=== PATIENT | female | born 1995 | race Caucasian/White ===

== ENCOUNTER 2021-09-02 19:48 | Observation (INO) | payer OTHER, MEDICAID ==
[~2021-09-02] VITALS: Ht 162.6 cm; Wt 135.2 kg
[2021-09-02] MEDS ORDERED: LACTATED RINGERS 1,000 ML IV SCH (20:45)
[2021-09-02] MEDS ORDERED: PREN1TAB78 PO (21:13)
[2021-09-02] MEDS ORDERED: VITAMIN D (21:13)
[2021-09-02] MEDS ORDERED: LEVOTHYROXIN (21:13)
[2021-09-02] MEDS ORDERED: FOLIC ACID (21:13)
[2021-09-02 21:53] LABS: CLARITY URINE CLEAR (CLEAR); COLOR URINE YELLOW (YELLOW); KETONES URINE NEGATIVE (NEGATIVE); LEUKOCYTE ESTERASE URINE NEGATIVE (NEGATIVE); NITRITE URINE NEGATIVE (NEGATIVE); OCCULT BLOOD URINE NEGATIVE (NEGATIVE); PH URINE 6.5 (4.5-8.0); PROTEIN URINE 1+ (NEGATIVE); SPECIFIC GRAVITY URINE 1.018 (1.005-1.030)
[2021-09-02 22:01] LABS: CHLORIDE 108 mEq/L (98-107)
[2021-09-02 22:03] LABS: BASOPHILS % 0.5 % (0.0-2.0); EOSINOPHILS % 0.4 % (0.0-5.0); HEMATOCRIT. 30.6 % (36.0-48.0); HEMOGLOBIN. 10.4 g/dL (12.0-16.0); LYMPHOCYTES % 12.1 % (20.0-50.0); MEAN CORPUSCULAR HEMOGLOBIN 28.4 pg (28.0-32.0); MEAN CORPUSCULAR VOLUME 83.3 fL (81.0-99.0); MEAN PLATELET VOLUME 10.6 fl (7.4-10.4); MONOCYTES % 5.8 % (2.0-8.0); NEUTROPHILS % 81.2 % (40.0-76.0); PLATELET 239 x1000/uL (130-400); RED BLOOD CELL COUNT 3.67 mill/uL (4.2-5.4); RED CELL DISTRIBUTION WIDTH 13.3 % (11.6-14.6)
== END 2021-09-02 22:45 | disposition home or self-care (01) ==
LOC: 8 EST LDRP 19:48 → 8 EST A/PP 21:15 → OB TRIAGE 21:19 → 8 EST LDRP 21:22
PROVIDERS: ADMIT Obstetrics & Gynecology; ATTEND Obstetrics & Gynecology
DX: O30.003 Twin pregnancy, unspecified number of placenta and unspecified number of amniotic sacs, third trimester (principal); O26.893 Other specified pregnancy related conditions, third trimester; R03.0 Elevated blood-pressure reading, without diagnosis of hypertension; R51.9 Headache, unspecified; Z3A.35 35 weeks gestation of pregnancy
CPT/HCPCS: 36415; 59025; 80053; 81003; 84550; 85025; 96360; 99281; G0378; A4315

== ENCOUNTER 2021-09-09 11:42 | Observation (INO) | payer OTHER, MEDICAID ==
[~2021-09-09] VITALS: Ht 162.6 cm; Wt 135.2 kg
[~2021-09-09 11:42] MED LIST: FOLIC ACID; LEVOTHYROXIN; PREN1TAB78 PO; VITAMIN D
[2021-09-09 14:00] LABS: BASOPHILS % 0.1 % (0.0-2.0); EOSINOPHILS % 0.1 % (0.0-5.0); HEMOGLOBIN. 10.6 g/dL (12.0-16.0); LYMPHOCYTES % 11.3 % (20.0-50.0); MEAN CORPUSCULAR HEMOGLOBIN 28.3 pg (28.0-32.0); MEAN CORPUSCULAR VOLUME 85.2 fL (81.0-99.0); MEAN PLATELET VOLUME 9.2 fl (7.4-10.4); MONOCYTES % 4.4 % (2.0-8.0); NEUTROPHILS % 84.1 % (40.0-76.0); PLATELET 266 x1000/uL (130-400); RED BLOOD CELL COUNT 3.75 mill/uL (4.2-5.4); RED CELL DISTRIBUTION WIDTH 13.7 % (11.6-14.6)
[2021-09-09 14:06] LABS: CHLORIDE 110 mEq/L (98-107)
[2021-09-09 14:08] LABS: CLARITY URINE CLOUDY (CLEAR); COLOR URINE YELLOW (YELLOW); KETONES URINE NEGATIVE (NEGATIVE); LEUKOCYTE ESTERASE URINE 2+ (NEGATIVE); NITRITE URINE NEGATIVE (NEGATIVE); OCCULT BLOOD URINE NEGATIVE (NEGATIVE); PH URINE 6.5 (4.5-8.0); PROTEIN URINE 1+ (NEGATIVE); SPECIFIC GRAVITY URINE 1.016 (1.005-1.030)
[2021-09-09 14:14] LABS: D-DIMER 2.03 mg/L FEU (<0.50); PARTIAL THROMBOPLASTIN TIME 31.9 sec (23.4-31.0); PROTHROMBIN TIME 10.3 sec (9.6-11.0)
== END 2021-09-09 16:10 | disposition home or self-care (01) ==
LOC: 8 EST LDRP 11:42
PROVIDERS: ADMIT Obstetrics & Gynecology; ATTEND Obstetrics & Gynecology
DX: O30.003 Twin pregnancy, unspecified number of placenta and unspecified number of amniotic sacs, third trimester (principal); Z79.899 Other long term (current) drug therapy; Z79.01 Long term (current) use of anticoagulants; Z3A.36 36 weeks gestation of pregnancy
CPT/HCPCS: 36415; 59025; 76815; 76818; 80053; 81003; 84550; 85025; 85379; 85384; 85610; 85730; 87086; G0378; 99281

== ENCOUNTER 2021-09-26 07:54 | Inpatient (IN) | payer MEDICAID, OTHER ==
[~2021-09-26] VITALS: Ht 162.6 cm; Wt 136.1 kg
[2021-09-26] MEDS ORDERED: DEXT 5%/LR + PITOCIN 20UNITS/L 1,000 ML IV SCH (09:00)
[2021-09-26] MEDS ORDERED: RHO(D) IMMUNE GLOBULIN 300 MCG/SYR IM ONE (09:00)
[2021-09-26] MEDS ORDERED: NALOXONE HCL 0.4 MG/ML 1ML VIAL IM PRN (09:00)
[2021-09-26] MEDS: LACTATED RINGERS 1,000 ML IV SCH ×2 (09:28→10:07)
[2021-09-26 09:32] LABS: BASOPHILS % 0.3 % (0.0-2.0); EOSINOPHILS % 0.3 % (0.0-5.0); HEMATOCRIT. 33.3 % (36.0-48.0); HEMOGLOBIN. 11.2 g/dL (12.0-16.0); LYMPHOCYTES % 14.9 % (20.0-50.0); MEAN CORPUSCULAR HEMOGLOBIN 28.3 pg (28.0-32.0); MEAN PLATELET VOLUME 9.8 fl (7.4-10.4); MONOCYTES % 4.8 % (2.0-8.0); NEUTROPHILS % 79.7 % (40.0-76.0); PLATELET 261 x1000/uL (130-400); RED BLOOD CELL COUNT 3.96 mill/uL (4.2-5.4); RED CELL DISTRIBUTION WIDTH 14.1 % (11.6-14.6)
[2021-09-26 09:41] LABS: CLARITY URINE CLEAR (CLEAR); COLOR URINE DARK YELLOW (YELLOW); KETONES URINE NEGATIVE (NEGATIVE); LEUKOCYTE ESTERASE URINE TRACE (NEGATIVE); NITRITE URINE NEGATIVE (NEGATIVE); OCCULT BLOOD URINE NEGATIVE (NEGATIVE); PROTEIN URINE 3+ (NEGATIVE); SPECIFIC GRAVITY URINE 1.019 (1.005-1.030)
[2021-09-26 09:46] LABS: *AMPHETAMINES SCREEN URINE NEGATIVE (NEGATIVE); *BARBITURATES SCREEN URINE NEGATIVE (NEGATIVE); *BENZODIAZEPINES SCREEN URINE NEGATIVE (NEGATIVE); *COCAINE SCREEN URINE NEGATIVE (NEGATIVE)
[2021-09-26 09:47] LABS: CANNABINOID URINE SCREEN NEGATIVE (NEGATIVE); METHADONE URINE SCREEN NEGATIVE (NEGATIVE); OPIATES URINE SCREEN NEGATIVE (NEGATIVE); PHENCYCLIDINE URINE SCREEN NEGATIVE (NEGATIVE)
[2021-09-26 09:48] LABS: INR 0.9; PARTIAL THROMBOPLASTIN TIME 32.8 sec (23.4-31.0)
[2021-09-26] MEDS ORDERED: PHENYLEPHRINE HCL 10 MG/ML 1ML (IV VIAL) IV ONE (14:09)
[2021-09-26] MEDS ORDERED: MORPHINE SULFATE/PF 1MG/ML 10ML AMP ONE (14:10)
[2021-09-26] MEDS ORDERED: OXYTOCIN 10 UNITS/ML 1ML ONE (15:36)
[2021-09-26] MEDS ORDERED: KETOROLAC 60MG/2ML VIAL IM ONE ×2 (15:49→15:58)
[2021-09-26] MEDS ORDERED: EPHEDRINE SULFATE 50MG/ML VIAL ONE (15:49)
[2021-09-26] MEDS ORDERED: DEXAMETHASONE 4MG/ML 1ML VIAL ONE (15:58)
[2021-09-26] MEDS ORDERED: ONDANSETRON HCL 4MG/2ML INJ ONE (15:58)
[2021-09-26] MEDS ORDERED: NALOXONE HCL 0.4 MG/ML 1ML VIAL IV PRN (16:00)
[2021-09-26] MEDS ORDERED: KETOROLAC 30MG/ML VIAL IV PRN (16:00)
[2021-09-26] MEDS ORDERED: BUTORPHANOL TARTRATE 2 MG/ML VIAL IV PRN (16:30)
[2021-09-26] MEDS ORDERED: DIPHENHYDRAMINE 50MG/ML VIAL ONE (16:33)
[2021-09-26] MEDS ORDERED: BISACODYL 10MG SUPP PR PRN (17:00)
[2021-09-26] MEDS ORDERED: HYDROCODONE/ACETAMINOPHEN 5/325MG TABLET PO PRN (17:00)
[2021-09-26] MEDS ORDERED: LANOLIN OINT 7GM TUBE TOP PRN (17:00)
[2021-09-26] MEDS ORDERED: ONDANSETRON HCL 4MG/2ML INJ IV PRN (17:00)
[2021-09-26] MEDS ORDERED: DIPHENHYDRAMINE 25MG CAPSULE PO PRN (17:00)
[2021-09-26] MEDS ORDERED: RHO(D) IMMUNE GLOBULIN 300 MCG/SYR IM PRN (17:00)
[2021-09-26 20:00] VITALS: BP 100/46
[2021-09-26] MEDS ORDERED: METHYLERGONOVINE MALEATE 0.2 MG/ML IM NR (20:11)
[2021-09-26 20:30] VITALS: BP 96/51
[2021-09-26] MEDS: DEXT 5%/LR + PITOCIN 20UNITS/L 1,000 ML IV SCH (20:51)
[2021-09-26 21:00] VITALS: BP 119/64
[2021-09-26] MEDS ORDERED: METOCLOPRAMIDE HCL 10MG/2ML VIAL IV PRN (21:30)
[2021-09-26 23:00] LABS: HEPATITIS B SURFACE ANTIGEN NEGATIVE
[2021-09-27 00:10] VITALS: BP 100/62
[2021-09-27 03:00] VITALS: BP 102/55
[2021-09-27] MEDS: DEXT 5%/LR + PITOCIN 20UNITS/L 1,000 ML IV SCH (05:00)
[2021-09-27] MEDS ORDERED: INFLUENZA VACCINE 05/PF 0.5 ML SYRINGE IM ONE (06:00)
[2021-09-27] MEDS ORDERED: TETANUS, DIPHTHERIA, PERTUSSIS VAC/PF 0.5ML (>10YR OLD) IM ONE (06:00)
[2021-09-27 07:40] VITALS: BP 100/57
[2021-09-27 08:47] LABS: BASOPHILS % 0.2 % (0.0-2.0); LYMPHOCYTES % 13.1 % (20.0-50.0); MEAN CORPUSCULAR HEMOGLOBIN 27.9 pg (28.0-32.0); MEAN CORPUSCULAR VOLUME 85.8 fL (81.0-99.0); MEAN PLATELET VOLUME 9.9 fl (7.4-10.4); MONOCYTES % 5.9 % (2.0-8.0); NEUTROPHILS % 80.8 % (40.0-76.0); PLATELET 281 x1000/uL (130-400); RED BLOOD CELL COUNT 2.24 mill/uL (4.2-5.4); RED CELL DISTRIBUTION WIDTH 13.8 % (11.6-14.6)
[2021-09-27] MEDS: PRENATAL VIT/FE FUMARATE/FA TABLET PO SCH (09:11)
[2021-09-27 09:35] LABS: HEMOGLOBIN. 6.2 g/dL (12.0-16.0)
[2021-09-27 09:37] LABS: HEMATOCRIT. 19.2 % (36.0-48.0)
[2021-09-27 09:53] LABS: T4 FREE 0.46 ng/dL (0.76-1.46)
[2021-09-27] MEDS ORDERED: LEVOTHYROXINE SODIUM 150MCG TABLET PO NR (10:30)
[2021-09-27] MEDS ORDERED: DEXT 5%/LR + PITOCIN 20UNITS/L 1,000 ML IV SCH (11:45)
[2021-09-27] MEDS: LEVOTHYROXINE SODIUM 125MCG TABLET PO SCH (14:06)
[2021-09-27 16:00] VITALS: BP 103/46
[2021-09-27 20:00] VITALS: BP 116/60
[2021-09-27] MEDS: DOCUSATE SODIUM 100MG CAPSULE PO SCH (21:34)
[2021-09-28] MEDS: HYDROCODONE/ACETAMINOPHEN 5/325MG TABLET PO PRN ×3 (01:39→17:41)
[2021-09-28 04:20] VITALS: BP 113/63
[2021-09-28] MEDS: LEVOTHYROXINE SODIUM 125MCG TABLET PO SCH (06:35)
[2021-09-28 08:00] VITALS: BP 114/64
[2021-09-28] MEDS: PRENATAL VIT/FE FUMARATE/FA TABLET PO SCH (08:20)
[2021-09-28] MEDS: FERROUS SULFATE 300MG/5ML UDC PO SCH ×3 (08:21→17:41)
[2021-09-28 16:00] VITALS: BP 150/82
[2021-09-28 19:15] VITALS: BP 113/80
[2021-09-28] MEDS: IBUPROFEN 400MG TABLET PO PRN (21:09)
[2021-09-29] VITALS (12 sets, daily range): BP systolic 125–145; BP diastolic 69–83
[2021-09-29] MEDS: LEVOTHYROXINE SODIUM 125MCG TABLET PO SCH (06:57)
[2021-09-29] MEDS: PRENATAL VIT/FE FUMARATE/FA TABLET PO SCH (08:15)
[2021-09-29] MEDS: FERROUS SULFATE 300MG/5ML UDC PO SCH ×3 (08:15→17:19)
[2021-09-29 17:00] LABS: BASOPHILS % 0.1 % (0.0-2.0); EOSINOPHILS % 0.2 % (0.0-5.0); HEMOGLOBIN. 7.7 g/dL (12.0-16.0); LYMPHOCYTES % 15.5 % (20.0-50.0); MEAN CORPUSCULAR HEMOGLOBIN 29.7 pg (28.0-32.0); MEAN CORPUSCULAR VOLUME 84.5 fL (81.0-99.0); MONOCYTES % 5.3 % (2.0-8.0); NEUTROPHILS % 78.9 % (40.0-76.0); PLATELET 297 x1000/uL (130-400); RED CELL DISTRIBUTION WIDTH 14.5 % (11.6-14.6)
[2021-09-29] MEDS: IBUPROFEN 400MG TABLET PO PRN (19:39)
[2021-09-29] MEDS: DOCUSATE SODIUM 100MG CAPSULE PO SCH (21:09)
[2021-09-30 04:00] VITALS: BP 117/74
[2021-09-30] MEDS ORDERED: DOCU-150 PO (05:26)
[2021-09-30] MEDS ORDERED: IBUP-2028 PO (05:26)
[2021-09-30] MEDS ORDERED: FE300LUD PO (05:26)
[2021-09-30] MEDS: LEVOTHYROXINE SODIUM 125MCG TABLET PO SCH (06:55)
[2021-09-30] MEDS: FERROUS SULFATE 300MG/5ML UDC PO SCH (08:00)
[2021-09-30] MEDS: PRENATAL VIT/FE FUMARATE/FA TABLET PO SCH (08:00)
[2021-09-30 08:21] VITALS: BP 131/77
== END 2021-09-30 11:40 | disposition home or self-care (01) | DRG 787 ==
LOC: OBSVTOIN 07:54 → 8 EST LDRP 07:54 → 8EST 19:22
PROVIDERS: ADMIT Obstetrics & Gynecology; ATTEND Obstetrics & Gynecology
PROC: 10D00Z1 Extraction of Products of Conception, Low, Open Approach (ICD-10-PCS; principal; 2021-09-26)
DX: O30.003 Twin pregnancy, unspecified number of placenta and unspecified number of amniotic sacs, third trimester (principal); K80.21 Calculus of gallbladder without cholecystitis with obstruction; O26.62 Liver and biliary tract disorders in childbirth; E03.9 Hypothyroidism, unspecified; O32.2XX2 Maternal care for transverse and oblique lie, fetus 2; O90.81 Anemia of the puerperium; O99.214 Obesity complicating childbirth; O99.284 Endocrine, nutritional and metabolic diseases complicating childbirth; Z20.822 Contact with and (suspected) exposure to COVID-19; O32.1XX0 Maternal care for breech presentation, not applicable or unspecified; Z37.2 Twins, both liveborn; Z3A.38 38 weeks gestation of pregnancy
CPT/HCPCS: 36415; 80305; 81003; 84439; 84443; 84481; 85025; 86592; 86703; 86762; 86850; 86900; 86920; 87340; 87426; 88307; 90686; 90715; 99281; G0378; J1100; J1200; J1885; J2210; J2274; J2370; J2405; J2590; J2765; J3490; J7120; P9016